=== PATIENT | male | born 1950 | race Caucasian/White ===

== ENCOUNTER 2017-02-28 20:16 | Inpatient (IN) | payer OTHER ==
[~2017-02-28] VITALS: Ht 167.6 cm; Wt 72.6 kg
[~2017-02-28 20:16] MED LIST: BACTRIM DS TAB1 EACH PO; CIPRO500 MG PO; COREG CR10 MG PO; ENALAPRIL MALEA20 MG PO; FLAGYL500MG PO; GABAPENTIN300 MG PO; LOPERAMIDE2 M1 PO; Neurin-Sl Tablet Sl SL; OXYC1TAB9 PO; PANTOPRAZOLE SO40 MG PO; PYRIDOXINE HCL100 MG PO; TAMS0.4C PO; TAMSULOSIN HCL0.4 MG PO; ZOLPIDEM TARTRAT5 MG PO; [UNRECOGNIZED DRUG - OTHER]
[2017-03-23] MEDS ORDERED: PROBIOTIC & AC1 EACH PO (10:40)
[2017-03-23] MEDS ORDERED: FLAGYL500MG PO (10:40)
[2017-03-23] MEDS ORDERED: CIPRO500 MG PO (10:40)
[2017-03-23] MEDS ORDERED: TRAM1TAB98 PO (10:40)
[2017-03-23] MEDS ORDERED: Neurin-Sl Tablet Sl SL (10:40)
[2017-03-23] MEDS ORDERED: PYRIDOXINE HCL100 MG PO (10:40)
== END 2017-03-23 14:07 | disposition home or self-care (01) | DRG 871 ==
LOC: ER 20:16 → SURH 03-01 11:49 → SEC-K 03-01 11:49 → SURH 03-01 14:19
PROC: 8E0ZXY6 Isolation (ICD-10-PCS; 2017-03-01)
PROC: BW21Y0Z Computerized Tomography (CT Scan) of Abdomen and Pelvis using Other Contrast, Unenhanced and Enhanced (ICD-10-PCS; 2017-03-02)
PROC: 0W2JX0Z Change Drainage Device in Pelvic Cavity, External Approach (ICD-10-PCS; principal; 2017-03-04)
PROC: BW3GY0Z Magnetic Resonance Imaging (MRI) of Pelvic Region using Other Contrast, Unenhanced and Enhanced (ICD-10-PCS; 2017-03-09)
PROC: BQ48ZZZ Ultrasonography of Left Knee (ICD-10-PCS; 2017-03-10)
PROC: B54CZZZ Ultrasonography of Left Lower Extremity Veins (ICD-10-PCS; 2017-03-13)
PROC: 30233N1 Transfusion of Nonautologous Red Blood Cells into Peripheral Vein, Percutaneous Approach (ICD-10-PCS; 2017-03-16)
PROC: 0W9J30Z Drainage of Pelvic Cavity with Drainage Device, Percutaneous Approach (ICD-10-PCS; 2017-03-18)
PROC: 0W2JX0Z Change Drainage Device in Pelvic Cavity, External Approach (ICD-10-PCS; 2017-03-18)
DX: A41.9 Sepsis, unspecified organism (principal); K65.1 Peritoneal abscess; L02.31 Cutaneous abscess of buttock; C20 Malignant neoplasm of rectum; K61.2 Anorectal abscess; B37.89 Other sites of candidiasis; K63.2 Fistula of intestine; I25.10 Atherosclerotic heart disease of native coronary artery without angina pectoris; I10 Essential (primary) hypertension; J43.1 Panlobular emphysema; Z93.3 Colostomy status; G47.33 Obstructive sleep apnea (adult) (pediatric); I73.89 Other specified peripheral vascular diseases; B96.4 Proteus (mirabilis) (morganii) as the cause of diseases classified elsewhere; E66.8 Other obesity; B96.5 Pseudomonas (aeruginosa) (mallei) (pseudomallei) as the cause of diseases classified elsewhere; Z16.24 Resistance to multiple antibiotics; D64.89 Other specified anemias
CPT/HCPCS: 72196